=== PATIENT | male | born 1975 | race Caucasian/White ===

== ENCOUNTER → 2020-04-16 | Outpatient (CLI) | payer BC ==
--- NOTE | 2020-04-16 09:28 | CT ---
EXAMINATION TYPE: CT sinus wo con DATE OF EXAM: 04/16/2020 COMPARISON: NONE HISTORY: Sinus drainage, headaches, allergies PATIENT. Chronic sinusitis. CT DLP: 670.4 mGycm. Automated Exposure Control for Dose Reduction was Utilized. TECHNIQUE: CT scan of the sinuses is performed without contrast, axial images are obtained, coronal r eformatted images are also reviewed. FINDINGS: Mild to borderline moderate mucosal thickening involving the maxillary sinuses bilaterally, left slightly more prominent than right. Mild mucosal thickening involving anterior ethmoid sinuses bilaterally, left greater than right. Remainder paranasal sinuses clear without suspicious opacifica tion or air-fluid levels The ostiomeatal complex is patent on the right, there is narrowing but proba ble patency on the left coronal image 19 due to antral mucosal thickening. Visualized portion of mastoid air cells show no abnormal opacification. The globes are intact bilate rally. IMPRESSION: Chronic anterior ethmoid and left greater than right maxillary sinus disease. No acute si nusitis currently.
== END | disposition home or self-care (01) ==
LOC: RADCTMAIN 08:57
PROVIDERS: ATTEND Otolaryngology
DX: J32.0 Chronic maxillary sinusitis (principal); J32.2 Chronic ethmoidal sinusitis
CPT/HCPCS: 70486